=== PATIENT | male | born 1965 | race Caucasian/White ===

== ENCOUNTER 2016-10-13 08:26 | Outpatient (RCR) | payer OTHER ==
[~2016-10-13 08:26] MED LIST: BLOOD PRESSURE
== END 2016-12-06 14:54 ==
LOC: WSOH 08:26
DX: M77.01 Medial epicondylitis, right elbow (principal); M77.11 Lateral epicondylitis, right elbow; X50.0XXA Overexertion from strenuous movement or load, initial encounter; Y99.0 Civilian activity done for income or pay

== ENCOUNTER 2017-01-18 15:01 | Outpatient (RCR) | END 2017-01-24 13:42 | LOC: WSOH 15:01 | DX: S43.432D Superior glenoid labrum lesion of left shoulder, subsequent encounter (principal); M25.512 Pain in left shoulder; S46.012D Strain of muscle(s) and tendon(s) of the rotator cuff of left shoulder, subsequent encounter; X50.3XXD Overexertion from repetitive movements, subsequent encounter; Y99.0 Civilian activity done for income or pay ==

== ENCOUNTER 2017-01-18 15:04 | Outpatient (RCR) | END 2017-01-24 13:42 | LOC: WSOH 15:04 | DX: Z53.9 Procedure and treatment not carried out, unspecified reason (principal) ==

== ENCOUNTER 2017-01-20 15:15 | Outpatient (RCR) | payer OTHER | END 2017-01-24 13:44 | disposition still patient (30) | LOC: WSC 15:15 | DX: S46.012D Strain of muscle(s) and tendon(s) of the rotator cuff of left shoulder, subsequent encounter (principal); X50.3XXD Overexertion from repetitive movements, subsequent encounter; Y99.0 Civilian activity done for income or pay | CPT/HCPCS: G0283-GP ==

== ENCOUNTER 2019-12-23 21:07 | Emergency (ER) | payer BC ==
[~2019-12-23] VITALS: Ht 175.3 cm; Wt 77.3 kg
[2019-12-23 21:14] VITALS: BP 163/97; TEMP 97.8
[2019-12-23 21:55] VITALS: PULSE 75
== END 2019-12-23 21:55 | disposition home or self-care (01) ==
LOC: COL.ER 21:07
DX: S05.02XA Injury of conjunctiva and corneal abrasion without foreign body, left eye, initial encounter (principal); I10 Essential (primary) hypertension; F17.210 Nicotine dependence, cigarettes, uncomplicated; X58.XXXA Exposure to other specified factors, initial encounter

== ENCOUNTER → 2020-12-22 | Outpatient (CLI) | payer BC ==
[~2020-12-22] VITALS: Ht 175.3 cm; Wt 75.2 kg
[~2020-12-22] MED LIST changes: +BYSTOLIC5 MG PO; +COZAAR100 MG PO
[2020-12-22 07:10] VITALS: BP 135/89; PULSE 65
[2020-12-22 08:36] VITALS: BP 129/94; PULSE 62
== END ==
LOC: COL.RAD 06:28
DX: M51.36 Other intervertebral disc degeneration, lumbar region (principal)
CPT/HCPCS: J3301

== ENCOUNTER → 2022-05-12 | Outpatient (CLI) | payer BC | LOC: COL.CARD 08:00 | DX: R42 Dizziness and giddiness (principal) ==

== ENCOUNTER → 2022-11-04 | Outpatient (CLI) | payer BC ==
[~2022-11-04] VITALS: Ht 175.3 cm; Wt 79.4 kg
[2022-11-04 12:35] VITALS: BP 126/89; PULSE 68; TEMP 98.8
[2022-11-04 14:20] VITALS: BP 151/96; PULSE 65
== END ==
LOC: COL.RAD 10-21 12:30
DX: M51.36 Other intervertebral disc degeneration, lumbar region (principal)

== ENCOUNTER → 2023-08-30 | Outpatient (CLI) | payer OTHER, BC ==
[~2023-08-30] VITALS: Ht 175.3 cm; Wt 81.0 kg
[~2023-08-30] MED LIST changes: +BUSPAR DIVIDOSE15 MG PO
[2023-08-30 12:45] VITALS: BP 184/84; PULSE 62; TEMP 97.7
[2023-08-30 13:25] VITALS: BP 160/94; PULSE 61
== END ==
LOC: COL.RAD 12:17
DX: M50.90 Cervical disc disorder, unspecified, unspecified cervical region (principal)
CPT/HCPCS: J1100

== ENCOUNTER → 2024-02-16 | Outpatient (CLI) | payer BC | LOC: COL.RAD 02-15 13:01 | DX: Z98.1 Arthrodesis status (principal) ==